=== PATIENT | female | born 1990 | race Caucasian/White ===

== ENCOUNTER 2017-10-13 | Inpatient (IN) | payer BC ==
[2017-10-13] VITALS (69 sets, daily range): BP systolic 99–166; BP diastolic 53–99; PULSE 72–129; TEMP 97.7–99.7
[~2017-10-13] VITALS: Ht 177.8 cm; Wt 92.3 kg
[~2017-10-13] MED LIST: MACROBID 1100 MG/CAP PO; PRENATAL
[2017-10-13] MEDS ORDERED: ZANTAC 7575 MG PO (00:20)
[2017-10-13 01:07] LABS: BASO % 0.2 % (0.0-2.0); GRAN # 16.9 (1.4-6.5); GRAN % 88.4 % (42.2-75.2); HEMATOCRIT 39.3 % (37.0-47.0); HEMOGLOBIN 13.7 g/dl (12.5-16.0); LYMPH # 1.3 (1.2-3.4); MEAN CELL VOLUME 86 fl (80.0-100.0); MEAN CORPUSCULAR HEMOGLOBIN 30 pg (27.0-31.0); MEAN CORPUSCULAR HGB CONC 35 g/dl (33.0-37.0); MEAN PLATELET VOLUME 9.9 fl (7.4-10.4); MONO # 0.7 (0.1-0.6); MONO % 3.7 % (1.7-9.3); PLATELET COUNT 167 K/mm3 (130-400); RED BLOOD COUNT 4.59 M/mm3 (4.10-5.30); REDCELL DISTRIBUTION WIDTH-CV 12.7 % (11.5-14.5)
[2017-10-13 01:19] LABS: ALBUMIN 3.9 gm/dL (3.5-5.0); BILIRUBIN,TOTAL 1.1 mg/dL (0.0-1.0); CALCIUM 9.9 mg/dL (8.4-10.2); CREATININE, serum 0.76 mg/dL (0.52-1.25); POTASSIUM 4.1 mmol/L (3.4-5.0); TOTAL PROTEIN 7.1 gm/dL (6.4-8.2)
[2017-10-13 18:05] LABS: BASO % 0.2 % (0.0-2.0); GRAN # 20.1 (1.4-6.5); GRAN % 89.3 % (42.2-75.2); LYMPH # 0.9 (1.2-3.4); LYMPH % 4.2 % (20.0-51.0); MEAN CELL VOLUME 88 fl (80.0-100.0); MEAN CORPUSCULAR HGB CONC 34 g/dl (33.0-37.0); MEAN PLATELET VOLUME 9.6 fl (7.4-10.4); MONO # 1.2 (0.1-0.6); MONO % 5.5 % (1.7-9.3); PLATELET COUNT 129 K/mm3 (130-400); RED BLOOD COUNT 3.56 M/mm3 (4.10-5.30); REDCELL DISTRIBUTION WIDTH-CV 13.1 % (11.5-14.5)
[2017-10-13 18:07] LABS: HEMATOCRIT 31.4 % (37.0-47.0); HEMOGLOBIN 10.7 g/dl (12.5-16.0); MEAN CORPUSCULAR HEMOGLOBIN 30 pg (27.0-31.0)
[2017-10-14 06:45] LABS: BASO # 0.1 (0.0-0.2); BASO % 0.3 % (0.0-2.0); EOS # 0.1 (0.0-0.7); EOS % 0.6 % (0-4.0); GRAN # 13.3 (1.4-6.5); GRAN % 81.5 % (42.2-75.2); LYMPH # 1.7 (1.2-3.4); LYMPH % 10.1 % (20.0-51.0); MEAN CELL VOLUME 89 fl (80.0-100.0); MEAN CORPUSCULAR HGB CONC 34 g/dl (33.0-37.0); MEAN PLATELET VOLUME 9.4 fl (7.4-10.4); MONO % 6.3 % (1.7-9.3); PLATELET COUNT 124 K/mm3 (130-400); RED BLOOD COUNT 3.19 M/mm3 (4.10-5.30); REDCELL DISTRIBUTION WIDTH-CV 13.2 % (11.5-14.5)
[2017-10-14 06:47] LABS: HEMATOCRIT 28.5 % (37.0-47.0); HEMOGLOBIN 9.6 g/dl (12.5-16.0); MEAN CORPUSCULAR HEMOGLOBIN 30 pg (27.0-31.0)
[2017-10-14 08:20] VITALS: BP 124/62; PULSE 92; TEMP 97.6
[2017-10-14 16:15] VITALS: BP 117/71; PULSE 95; TEMP 97.5
[2017-10-14 20:10] VITALS: BP 120/63; PULSE 106; TEMP 98.2
[2017-10-15 08:10] VITALS: BP 125/76; PULSE 92; TEMP 97.6
[2017-10-15] MEDS ORDERED: IBU600 MG PO (09:46)
[2017-10-15] MEDS ORDERED: PERCOCET 325 MG1 TA2 PO (09:46)
== END 2017-10-15 11:55 | disposition home or self-care (01) | DRG 767 ==
LOC: LDRO → LDR 00:30 → OB 20:15
PROVIDERS: Obstetrics & Gynecology
PROC: 10E0XZZ Delivery of Products of Conception, External Approach (ICD-10-PCS; principal; 2017-10-13)
PROC: 10D17ZZ Extraction of Products of Conception, Retained, Via Natural or Artificial Opening (ICD-10-PCS; 2017-10-13)
PROC: 0KQM0ZZ Repair Perineum Muscle, Open Approach (ICD-10-PCS; 2017-10-13)
DX: O69.81X0 Labor and delivery complicated by cord around neck, without compression, not applicable or unspecified (principal); O72.2 Delayed and secondary postpartum hemorrhage; O70.1 Second degree perineal laceration during delivery; Z3A.39 39 weeks gestation of pregnancy; Z37.0 Single live birth
CPT/HCPCS: J2210; J2405; J2590; J2795; J7120

== ENCOUNTER → 2017-10-27 | Outpatient (CLI) | payer BC ==
[~2017-10-27] MED LIST changes: +IBU600 MG PO; +PERCOCET 325 MG1 TA2 PO; +ZANTAC 7575 MG PO
== END ==
LOC: OLC 12:47
DX: Z39.1 Encounter for care and examination of lactating mother (principal); Z71.89 Other specified counseling

== ENCOUNTER 2019-06-25 13:39 | Inpatient (IN) | payer BC ==
[~2019-06-25] VITALS: Ht 177.8 cm; Wt 90.9 kg
[2019-06-30] VITALS (22 sets, daily range): BP systolic 112–142; BP diastolic 61–98; PULSE 73–100; TEMP 96.7–98.4
--- NOTE | 2019-06-30 07:10 | NUR ---
Patient ambulatory to LR6 with spouse, changed into gown, FHR/TOCO monitors placed and explained. Patient denies regular contractions/leaking of fluid/vaginal bleeding. Plan of care discussed and assessment completed. IV started in left forearm, blood obtained and to lab, LR infusing. 0740: SVE-/-2 and pitocin started per protocol. 0805: at bedside and assessing patient and FHR strip. 0809: SVE per physician /-2 and AROM at this time with clear fluid noted. Plan of care discussed.
[2019-06-30 08:09] LABS: BASO % 0.1 % (0.0-2.0); EOS % 0.5 % (0-4.0); GRAN # 5.6 (1.4-6.5); GRAN % 71.9 % (42.2-75.2); HEMATOCRIT 33.6 % (37.0-47.0); LYMPH # 1.5 (1.2-3.4); MEAN CELL VOLUME 83 fl (80.0-100.0); MEAN CORPUSCULAR HEMOGLOBIN 27 pg (27.0-31.0); MEAN CORPUSCULAR HGB CONC 33 g/dl (33.0-37.0); MEAN PLATELET VOLUME 9.8 fl (7.4-10.4); MONO # 0.6 (0.1-0.6); MONO % 7.4 % (1.7-9.3); PLATELET COUNT 159 K/mm3 (130-400); RED BLOOD COUNT 4.06 M/mm3 (4.10-5.30); REDCELL DISTRIBUTION WIDTH-CV 13.2 % (11.5-14.5)
--- NOTE | 2019-06-30 08:45 | NUR ---
Patient requesting epidural and Santi [employer]GRAPH OPERATOR called and notified. Patient sitting on birthing ball. 0910: Patient sitting on edge of bed and T.Kareem PLANOGRAPH OPERATOR at bedside for placement of epidural. FHR difficult to trace due to maternal position. 0916: Test dose given and patient tolerates well. 0925: Patient repositioned and plan of care and precautions reviewed.
--- NOTE | 2019-06-30 09:55 | NUR ---
Cedillo catheter placed and patient tolerates well. Patient turned left lateral and right leg resting in stirrup.
--- NOTE | 2019-06-30 10:20 | NUR ---
Patient sitting up with feet lowered. 1035: SVE-10/100/+[address] Spicer called and notified. 1040: Cedillo catheter removed and Dr. Spicer at bedside. Patient set up for vaginal delivery. 1042: Pericare done and patient begins to push with Dr. Spicer. 1043: FHR baseline 135bpm and decreases to 90bpm for approx 1.5 minutes. 1045: Spontaneous vaginal delivery of head followed by body. Infant to patients abdomen and ENabila RN assumes care of . Cord clamped by physician and cut by FOB. Cord blood obtained. 1050: Spontaneous delivery of placenta and pitocin bolus started per protocol. Dr. Spicer begins to repair laceration. Dr. Spicer orders methergine IM to be given. Fundal massage done/firm/bleeding WNL. 1055: Methergine IM given and patient tolerates well. Patient repositioned and ice pack to perineum. Plan of care discussed.
--- NOTE | 2019-06-30 12:40 | NUR ---
Patient sitting on edge of bed and epidural catheter removed and patient tolerates well. Patient to bathroom with standby assist, voids, pericare done, new gown/underwear/ice pack on. Patient ambulates to room and oriented to new room. Plan of care discussed.
[2019-07-01 03:12] VITALS: BP 130/82; PULSE 86; TEMP 97.5
[2019-07-01] MEDS ORDERED: IBU600 MG PO (08:43)
[2019-07-01 09:09] VITALS: BP 130/78; PULSE 84; TEMP 97.6
--- NOTE | 2019-07-01 10:48 | NUR ---
Initial visit; Parents thanked [employer] for offering congratulations and God's blessings for the of their son. [employer] thanked family for choosing [facility].
== END 2019-07-01 16:30 | disposition home or self-care (01) | DRG 807 ==
LOC: LDR 13:39 → OB 06-30 14:58
PROVIDERS: ADMIT Obstetrics & Gynecology
PROC: 3E033VJ Introduction of Other Hormone into Peripheral Vein, Percutaneous Approach (ICD-10-PCS; principal; 2019-06-30)
PROC: 10E0XZZ Delivery of Products of Conception, External Approach (ICD-10-PCS; 2019-06-30)
PROC: 10907ZC Drainage of Amniotic Fluid, Therapeutic from Products of Conception, Via Natural or Artificial Opening (ICD-10-PCS; 2019-06-30)
DX: O70.0 First degree perineal laceration during delivery (principal); Z37.0 Single live birth; Z3A.40 40 weeks gestation of pregnancy
CPT/HCPCS: J2210; J2590; J7120